=== PATIENT | female | born 1970 ===

== ENCOUNTER 2018-11-19 12:26 | Day surgery (SDC) | payer OTHER ==
[2018-11-19] MEDS ORDERED: CODE1TAB37 PO (17:03)
[2018-11-19] MEDS ORDERED: KETO10TA2 PO (17:03)
== END 2018-11-19 18:10 | disposition home or self-care (01) ==
LOC: CIR.AMB 12:26
DX: D27.1 Benign neoplasm of left ovary (principal); Z30.2 Encounter for sterilization; Z30.432 Encounter for removal of intrauterine contraceptive device

== ENCOUNTER 2020-07-31 12:15 | Inpatient (IN) | payer OTHER ==
[~2020-07-31] VITALS: Ht 162.6 cm; Wt 66.7 kg
[~2020-07-31 12:15] MED LIST: CODE1TAB37 PO; KETO10TA2 PO
[2020-08-03] MEDS ORDERED: LORAZEPAM0.5 MG (15:35)
[2020-08-03] MEDS ORDERED: RIZATRIPTAN10 MG (15:35)
[2020-08-06] MEDS ORDERED: NAPR500T14 PO (04:30)
[2020-08-06] MEDS ORDERED: Tylenol #3 PO (04:30)
== END 2020-08-06 08:54 | disposition home or self-care (01) | DRG 743 ==
LOC: SURH 08-03 12:15 → O/R 08-03 14:00 → SURH 08-03 14:30
PROVIDERS: ADMIT Obstetrics & Gynecology; ATTEND Obstetrics & Gynecology
PROC: 0UT20ZZ Resection of Bilateral Ovaries, Open Approach (ICD-10-PCS; 2020-08-03)
PROC: 0UT70ZZ Resection of Bilateral Fallopian Tubes, Open Approach (ICD-10-PCS; 2020-08-03)
PROC: 0T784DZ Dilation of Bilateral Ureters with Intraluminal Device, Percutaneous Endoscopic Approach (ICD-10-PCS; 2020-08-03)
PROC: 0UT90ZZ Resection of Uterus, Open Approach (ICD-10-PCS; principal; 2020-08-03 19:15)
DX: N80.1 Endometriosis of ovary (principal); N80.0 Endometriosis of uterus; N72 Inflammatory disease of cervix uteri; N73.6 Female pelvic peritoneal adhesions (postinfective); D25.1 Intramural leiomyoma of uterus; D25.2 Subserosal leiomyoma of uterus; D39.12 Neoplasm of uncertain behavior of left ovary; N83.11 Corpus luteum cyst of right ovary; N83.8 Other noninflammatory disorders of ovary, fallopian tube and broad ligament; R19.00 Intra-abdominal and pelvic swelling, mass and lump, unspecified site